=== PATIENT | male | born 1975 | race Caucasian/White ===

== ENCOUNTER 2016-04-09 09:55 | Outpatient (CLI) ==
[2016-04-09 10:33] LABS: ALBUMIN 4.3 g/dL (3.4-5.0); BILIRUBIN,DIRECT 0.22 mg/dL (0.00-0.30); BILIRUBIN,TOTAL 0.55 mg/dL (0.00-1.20); TOTAL PROTEIN 7.7 g/dL (6.4-8.2)
[2016-04-13 09:05] LABS: ANION GAP 21.3; BUN/CREATININE RATIO 16.39; CALCIUM 9.6 mg/dL (8.2-10.2); CREATININE 1.22 mg/dL (0.60-1.10); PHOSPHORUS 3.4 mg/dL (2.5-4.9); POTASSIUM 4.3 mmol/L (3.5-5.1)
[2016-04-13 09:20] LABS: ALBUMIN/GLOBULIN RATIO 1.26
== END 2016-04-09 09:56 | disposition home or self-care (01) ==
LOC: LAB 09:55
PROVIDERS: ATTEND Pain Medicine Interventional Pain Medicine
DX: Z51.81 Encounter for therapeutic drug level monitoring (principal); Z79.891 Long term (current) use of opiate analgesic; F19.20 Other psychoactive substance dependence, uncomplicated
CPT/HCPCS: 36415; 80053; 80076; 82248; 84100